=== PATIENT | female | born 1995 | race Caucasian/White ===

== ENCOUNTER 2016-12-16 10:53 | Emergency (ER) | payer BC ==
--- NOTE | 2016-12-17 08:42 | ER ---
Date of Service: 12/16/2016 SUBJECTIVE: Tiffanie presents to the emergency room with complaints of tampon possibly stuck in her vagina. The patient states that she did place 1 last night and is not sure if she took it out last night. She had been consuming some alcohol. She states that she did attempt to feel still in her vagina for the tampon, but was unable to feel anything and subsequently presents to the emergency room. She states that she has not been experiencing any fever or chills. No vaginal discharge. PAST MEDICAL HISTORY: Acne. MEDICATIONS: Minocycline. ALLERGIES: Sulfa. REVIEW OF SYSTEMS: Denies any chest pain, shortness of breath. No fever or chills or other worrisome signs or symptoms. PHYSICAL EXAMINATION: General: This is a 21-year-old female patient, in no acute distress. Vital Signs: Heart rate is 103, blood pressure is 124/78, temperature is 37.1, respiratory rate 16, O2 saturations 96%. Skin: Warm, pink, and dry. HEENT: Head is normocephalic, atraumatic. Mouth, oral mucosa is moist. Lungs: Clear to auscultation. Heart: Regular rate and rhythm. Abdomen: Soft, nontender. There is no hepatosplenomegaly noted. There are no masses noted. GENITOURINARY: She does have no discharge noted. EMERGENCY ROOM COURSE: Bimanual examination was performed and a foreign body was felt within the posterior wall of the vagina. I was unable to remove it digitally. Subsequently, a speculum was used. The tampon could be seen up against the cervix. The tampon was subsequently removed with a ring forceps. The patient tolerated this well. She remained stable in my care in the emergency room. ASSESSMENT: Retained tampon. PLAN: The patient will be discharged. She was advised to return emergency room if she develops any fever, chills, abdominal pain, vaginal discharge, or other worrisome signs or symptoms. All questions were answered. MWK: 12/17/2016 04:59:29 MODL: 12/17/2016 05:09:06 /[id number]
== END 2016-12-16 11:45 | disposition home or self-care (01) ==
LOC: VM.ED 10:53
CPT/HCPCS: 99283